=== PATIENT | male | born 1950 | race Caucasian/White ===

== ENCOUNTER 2017-10-29 15:12 | Observation (INO) | payer MEDICARE, OTHER ==
[~2017-10-29] VITALS: Ht 177.8 cm; Wt 91.6 kg
[~2017-10-29 15:12] MED LIST: ALUMAGSIMA PO; AMLO10 PO; ASPI81CH PO; Augmentin 875-1 EACH PO; BACL10 PO; CLIN150 PO; CLOP75 PO; CYCL10 PO; DIAZ5 PO; DIPATR PO; ENOX100I SC; ESCI20 PO; EZET10-20 PO; FAMO10 PO; FAMO20 PO; GARLIC; GEMF600 PO; HYDCHL25 PO; HYDMOR2 PO; HYDMOR4 PO; LORA1 PO; MECL25 PO; METPRE4DP PO; Metoprolol Tart25 MG PO; NITRSPRAY SL; OMEP20ER PO; ONDA4ODT MM; OXYACE5T PO; OXYACE7.5T PO; OXYC10TA19 PO; PERCOCET 10/325 MG PO; POTA10T PO; POTCHL10ER PO; PROM25 PO; PROP60 PO; SUCR1 PO; TIZA4 PO; VALS80 PO; WARF1 PO; WARF3 PO; WARF4 PO
[2017-10-29 15:38] LABS: BASOPHILS ABSOLUTE AUTO 0.03 K/mm3 (0.00-0.23); BASOPHILS PERCENT AUTO 0 % (0-2); EOSINOPHILS ABSOLUTE AUTO 0.12 K/mm3 (0.00-0.68); EOSINOPHILS PERCENT AUTO 1 % (0-6); Hematocrit 30.9 % (37.0-53.0); Hemoglobin 10.8 g/dL (13.5-17.5); IMMATURE GRAN ABSOLUTE AUTO 0.05 K/mm3 (0.00-0.10); IMMATURE GRAN PERCENT AUTO 1 % (0-1); LYMPHOCYTES ABSOLUTE AUTO 1.66 K/mm3 (0.84-5.20); LYMPHOCYTES PERCENT AUTO 17 % (21-46); MONOCYTES ABSOLUTE AUTO 0.74 K/mm3 (0.16-1.47); MONOCYTES PERCENT AUTO 8 % (4-13); Mean Corpuscular Volume 77 fL (80-100); Mean Platelet Volume 10.6 fL (9.1-12.4); NEUTROPHILS ABSOLUTE AUTO 7.29 K/mm3 (1.96-9.15); NEUTROPHILS PERCENT AUTO 74 % (41-73); Platelet Count 185 K/mm3 (150-400); RDW Coefficient Variation 15.8 % (11.7-14.2); RDW Standard Deviation 44.1 fL (35.1-46.3); White Blood Cell Count 9.89 K/mm3 (4.00-11.30)
[2017-10-29 15:52] LABS: Alanine Aminotransfer (ALT/SGP 20 U/L (12-78); Albumin, Blood 3.1 g/dL (3.4-5.0); Albumin/Globulin Ratio 0.9 (0.8-1.8); Alk Phos 114 U/L (50-136); Anion Gap 11 mmol/L (6-16); Aspartate Aminotrans (AST/SGOT 32 U/L (12-37); Bilirubin, Total 0.5 mg/dL (0.1-1.0); Blood Urea Nitrogen 9 mg/dL (8-24); Bun/Creatinine Ratio 7.4 (12.0-20.0); CO2, Blood 21 mmol/L (21-32); Calcium, Blood 8.2 mg/dL (8.5-10.1); Chloride, Blood 112 mmol/L (98-108); Creatinine, Blood 1.21 mg/dL (0.60-1.20); Ethanol (Alcohol), Blood, Med <3 mg/dL; Globulin, Blood 3.6 g/dL (2.2-4.0); Glomerular Filtration Rate >60 (60-); Glucose, Blood 94 mg/dL (70-99); Sodium, Blood 144 mmol/L (136-145); Total Protein, Blood 6.7 g/dL (6.4-8.2); Troponin I 0.105 ng/mL (0.000-0.040)
[2017-10-29 16:04] LABS: Prothrombin Time Results 70.8 Sec (9.7-11.5)
[2017-10-29 17:22] LABS: International Normalized Ratio 6.43
[2017-10-29] MEDS ORDERED: DOXE50 PO (17:39)
[2017-10-29] MEDS ORDERED: PANT40 PO (17:40)
[2017-10-29] MEDS ORDERED: ISOMON20 PO (17:41)
[2017-10-29] MEDS ORDERED: ATOR80 PO (17:42)
[2017-10-29] MEDS ORDERED: WARF2 PO (23:54)
[2017-10-29] MEDS ORDERED: HYDCHL12.5 PO (23:57)
[2017-10-30] MEDS ORDERED: OXYC15ER (00:03)
[2017-10-30 02:48] LABS: International Normalized Ratio 5.26; Prothrombin Time Results 57.6 Sec (9.7-11.5)
[2017-10-30 02:52] LABS: Anion Gap 6 mmol/L (6-16); Blood Urea Nitrogen 9 mg/dL (8-24); Bun/Creatinine Ratio 7.1 (12.0-20.0); CHOL/HDL RATIO 2.3; CO2, Blood 24 mmol/L (21-32); Calcium, Blood 7.9 mg/dL (8.5-10.1); Chloride, Blood 114 mmol/L (98-108); Cholesterol 70 mg/dL (50-200); Creatinine, Blood 1.27 mg/dL (0.60-1.20); Glomerular Filtration Rate 60 (60-); Glucose, Blood 98 mg/dL (70-99); HDL Cholesterol 31 mg/dL (>39); LDL/HDL RATIO 0.6; Low Density Lipoprotein Chol 19 mg/dL (0-110); Potassium, Blood 3.8 mmol/L (3.5-5.5); Sodium, Blood 144 mmol/L (136-145); Triglycerides 99 mg/dL (30-160); Very Low Density Lipoprot Chol 19 mg/dL (6-32)
[2017-10-30] MEDS ORDERED: ASPI81CH PO (12:17)
[2017-10-30] MEDS ORDERED: AMLO10 PO (12:17)
[2017-10-30] MEDS ORDERED: ISOMON20 (12:18)
[2017-10-30] MEDS ORDERED: HYDCHL25 PO (12:19)
== END 2017-10-30 13:12 | disposition home or self-care (01) ==
LOC: ER 15:12 → MEDS 15:13
PROVIDERS: Emergency Medicine; Family Medicine
DX: R55 Syncope and collapse (principal); E86.0 Dehydration; R79.89 Other specified abnormal findings of blood chemistry; R79.1 Abnormal coagulation profile; E78.5 Hyperlipidemia, unspecified; I10 Essential (primary) hypertension; I25.10 Atherosclerotic heart disease of native coronary artery without angina pectoris; H40.9 Unspecified glaucoma; E87.6 Hypokalemia; Z79.01 Long term (current) use of anticoagulants; Z95.2 Presence of prosthetic heart valve; Z95.1 Presence of aortocoronary bypass graft; Z88.5 Allergy status to narcotic agent; Z88.8 Allergy status to other drugs, medicaments and biological substances; Z79.899 Other long term (current) drug therapy; Z79.02 Long term (current) use of antithrombotics/antiplatelets; Z95.5 Presence of coronary angioplasty implant and graft; Z82.49 Family history of ischemic heart disease and other diseases of the circulatory system; Z79.52 Long term (current) use of systemic steroids
CPT/HCPCS: 36415; 70450; 71045; 80048; 80053; 80061; 82947; 83735; 84484; 85025; 85610; 93005; 93010; 93880; 96361; 96372; 96374; 96375; 99285; C9113; G0378; G0480; J3010; J3430; J7030

== ENCOUNTER 2018-05-01 12:05 | Day surgery (SDC) | payer MEDICARE, OTHER ==
[~2018-05-01] VITALS: Ht 177.8 cm; Wt 86.7 kg
[~2018-05-01 12:05] MED LIST changes: +ATOR80 PO; +DOCU100 PO; +DOXE50 PO; +HYDCHL12.5 PO; +ISOMON20; +ISOMON20 PO; +K-Dur20 MEQ PO; +LOSA50 PO; +METAMUCIL PO; +METO25 PO; +NITROSTAT SL; +OXYC15ER; +OXYC15ER PO; +PANT40 PO; +PROBIOTIC1 EAC1 PO; +RANO500T PO; +WARF2 PO
[2018-05-06] MEDS ORDERED: FOLI1 PO (13:35)
== END 2018-05-01 15:22 | disposition home or self-care (01) ==
LOC: ORSCSDS 12:05
PROVIDERS: Internal Medicine Gastroenterology
PROC: 0DBK8ZX Excision of Ascending Colon, Via Natural or Artificial Opening Endoscopic, Diagnostic (ICD-10-PCS; principal; 2018-05-01 13:45)
PROC: 0DBH8ZX Excision of Cecum, Via Natural or Artificial Opening Endoscopic, Diagnostic (ICD-10-PCS; principal; 2018-05-01 13:45)
PROC: 0DBL8ZX Excision of Transverse Colon, Via Natural or Artificial Opening Endoscopic, Diagnostic (ICD-10-PCS; principal; 2018-05-01 13:45)
PROC: 0DBM8ZX Excision of Descending Colon, Via Natural or Artificial Opening Endoscopic, Diagnostic (ICD-10-PCS; principal; 2018-05-01 13:45)
DX: Z12.11 Encounter for screening for malignant neoplasm of colon (principal); D12.0 Benign neoplasm of cecum; D12.2 Benign neoplasm of ascending colon; D12.3 Benign neoplasm of transverse colon; D12.4 Benign neoplasm of descending colon; K57.30 Diverticulosis of large intestine without perforation or abscess without bleeding; Z86.010 Personal history of colon polyps; K59.03 Drug induced constipation; R10.84 Generalized abdominal pain; I25.10 Atherosclerotic heart disease of native coronary artery without angina pectoris; Z95.1 Presence of aortocoronary bypass graft; G47.33 Obstructive sleep apnea (adult) (pediatric); Z87.891 Personal history of nicotine dependence; Z79.01 Long term (current) use of anticoagulants; Z79.891 Long term (current) use of opiate analgesic; Z79.899 Other long term (current) drug therapy
CPT/HCPCS: 88305

== ENCOUNTER 2018-06-10 10:34 | Day surgery (SDC) | payer MEDICARE, OTHER ==
[~2018-06-10 10:34] MED LIST changes: +FOLI1 PO
== END 2018-06-10 22:43 | disposition home or self-care (01) ==
LOC: US 10:34
DX: N63.21 Unspecified lump in the left breast, upper outer quadrant (principal)
CPT/HCPCS: 76942; 88173

== ENCOUNTER 2018-07-17 13:31 | Day surgery (SDC) | payer MEDICARE, OTHER ==
[~2018-07-17] VITALS: Ht 177.8 cm; Wt 86.4 kg
[~2018-07-17 13:31] MED LIST changes: +EZFE 200200 MG PO; +FOLI400 PO; +Ferrex 150 For1 EACH PO; +METO25; +Metamucil Smooth1 EA PO; +Nitrostat0.4 MG SL; +Ranexa1000 MG PO; +WARF4
[2018-07-17 14:38] LABS: International Normalized Ratio 1.8; Prothrombin Time Results 18.1 Sec (9.7-11.5)
--- NOTE | 2018-07-17 17:24 | NUR ---
07/17/18 1724 Narcisa Ward AT 1620 CHECKED DRSG. DRSG DRY/INTACT, REWRAPPED SCOTT WRAP SNUGLY ON CHEST. PT TOLERATED WELL.
== END 2018-07-17 17:10 | disposition home or self-care (01) ==
LOC: ORSCSDS 13:31
PROVIDERS: Surgery
PROC: 0HBU0ZX Excision of Left Breast, Open Approach, Diagnostic (ICD-10-PCS; principal; 2018-07-17 14:45)
DX: D24.2 Benign neoplasm of left breast (principal); I12.9 Hypertensive chronic kidney disease with stage 1 through stage 4 chronic kidney disease, or unspecified chronic kidney disease; N18.9 Chronic kidney disease, unspecified; I25.10 Atherosclerotic heart disease of native coronary artery without angina pectoris; J44.9 Chronic obstructive pulmonary disease, unspecified; G47.33 Obstructive sleep apnea (adult) (pediatric); Z87.891 Personal history of nicotine dependence; Z86.73 Personal history of transient ischemic attack (TIA), and cerebral infarction without residual deficits; I25.2 Old myocardial infarction; Z79.01 Long term (current) use of anticoagulants; Z79.899 Other long term (current) drug therapy
CPT/HCPCS: 85610; 88305; 88341; 88342; J2250; J3010; J7120

== ENCOUNTER 2018-12-04 11:38 | Day surgery (SDC) | payer MEDICARE, OTHER ==
[~2018-12-04] VITALS: Ht 177.8 cm; Wt 83.8 kg
== END 2018-12-04 14:40 | disposition home or self-care (01) ==
LOC: ORSCSDS 11:38
PROVIDERS: Internal Medicine Gastroenterology
PROC: 0DBL8ZX Excision of Transverse Colon, Via Natural or Artificial Opening Endoscopic, Diagnostic (ICD-10-PCS; principal; 2018-12-04 13:00)
PROC: 0DBM8ZX Excision of Descending Colon, Via Natural or Artificial Opening Endoscopic, Diagnostic (ICD-10-PCS; principal; 2018-12-04 13:00)
DX: Z86.010 Personal history of colon polyps (principal); D12.4 Benign neoplasm of descending colon; D12.3 Benign neoplasm of transverse colon; K57.30 Diverticulosis of large intestine without perforation or abscess without bleeding; D64.9 Anemia, unspecified; I25.10 Atherosclerotic heart disease of native coronary artery without angina pectoris; G47.33 Obstructive sleep apnea (adult) (pediatric); I10 Essential (primary) hypertension; E78.00 Pure hypercholesterolemia, unspecified; Z86.73 Personal history of transient ischemic attack (TIA), and cerebral infarction without residual deficits; Z87.891 Personal history of nicotine dependence; K21.9 Gastro-esophageal reflux disease without esophagitis; Z79.01 Long term (current) use of anticoagulants; Z79.899 Other long term (current) drug therapy
CPT/HCPCS: 88305; J2704; J7120

== ENCOUNTER → 2019-07-20 | Outpatient (CLI) | payer MEDICARE, OTHER ==
[~2019-07-20] MED LIST changes: +AMLO5 PO; +ENOX30I SC; +FURO40 PO
[2019-07-20 11:19] LABS: BASOPHILS ABSOLUTE AUTO 0.03 K/mm3 (0.00-0.23); BASOPHILS PERCENT AUTO 0 % (0-2); EOSINOPHILS ABSOLUTE AUTO 0.16 K/mm3 (0.00-0.68); EOSINOPHILS PERCENT AUTO 2 % (0-6); Hematocrit 36.5 % (37.0-53.0); Hemoglobin 12.5 g/dL (13.5-17.5); IMMATURE GRAN ABSOLUTE AUTO 0.06 K/mm3 (0.00-0.10); IMMATURE GRAN PERCENT AUTO 1 % (0-1); LYMPHOCYTES ABSOLUTE AUTO 2.37 K/mm3 (0.84-5.20); LYMPHOCYTES PERCENT AUTO 33 % (21-46); MONOCYTES ABSOLUTE AUTO 0.58 K/mm3 (0.16-1.47); MONOCYTES PERCENT AUTO 8 % (4-13); Mean Corpuscular HGB 28.6 pg (26.0-34.0); Mean Corpuscular HGB Conc 34.2 g/dL (31.5-36.5); Mean Corpuscular Volume 84 fL (80-100); Mean Platelet Volume 10.9 fL (9.1-12.4); NEUTROPHILS ABSOLUTE AUTO 3.91 K/mm3 (1.96-9.15); NEUTROPHILS PERCENT AUTO 55 % (41-73); Platelet Count 156 K/mm3 (150-400); RDW Coefficient Variation 13.5 % (11.7-14.2); RDW Standard Deviation 41.1 fL (35.1-46.3); Red Blood Cell Count 4.37 M/mm3 (4.30-5.90); White Blood Cell Count 7.11 K/mm3 (4.00-11.30)
[2019-07-20 11:24] LABS: Bun/Creatinine Ratio 10.6 (12.0-20.0); Calcium, Blood 8.9 mg/dL (8.5-10.1); Creatinine, Blood 1.51 mg/dL (0.60-1.20); Potassium, Blood 3.7 mmol/L (3.5-5.5)
[2019-07-20 11:25] LABS: International Normalized Ratio 1.08; Prothrombin Time Results 11.5 Sec (9.7-11.5)
== END ==
LOC: LAB 10:59 → LAB SHORT 10:59
PROVIDERS: Internal Medicine Cardiovascular Disease
DX: R07.9 Chest pain, unspecified (principal); R93.1 Abnormal findings on diagnostic imaging of heart and coronary circulation
CPT/HCPCS: 80048; 85025; 85610

== ENCOUNTER 2019-07-21 06:42 | Day surgery (SDC) | payer MEDICARE, OTHER ==
[~2019-07-21] VITALS: Ht 177.8 cm; Wt 90.9 kg
[~2019-07-21 06:42] MED LIST changes: -ENOX30I SC
[2019-07-21] MEDS ORDERED: ENOX30I SC (10:44)
--- NOTE | 2019-07-21 15:19 | NUR ---
PT AMBULATES TO RESTROOM MULTIPLE TIMES. PT REPORTS URINATING WITHOUT DIFFICULTIES. PT ALSO REPORTS HAVING A BM WITHOUT DIFFICULITIES. VS. NO BLEEDING, OOZING OR HEMATOMA NOTED AT R FEMORAL ACCESS SITE. WILL CONTINUR TO MONITOR.
--- NOTE | 2019-07-21 16:14 | NUR ---
DISCHARGE PT DRESSED SELF WITH ASSISSENCE FROM SPOUSE. PT DENIES ANY PAIN. VSS. R FEMORAL ACCESS SITE WITH BERE DRESSING. NO BLEEDING, OOZING OR HEMATOMA NOTED. PT REPORTS TENDERNESS BUT DENIES ANY PAIN TO AREA. PT AND SPOUSE STATE THEIR UNDERSTANDING OF SITE CARE INSTRUCTIONS AND DISCHARGE INSTRUCTIONS AND DENY ANY QUESTIONS OR CONCERNS. IV DCD WITH CATH INTACT. PT TO FRONT ENTERENCE VIA WHEELCHAIR AND ASSISTED INTO VEHICLE.
== END 2019-07-21 16:00 | disposition home or self-care (01) ==
LOC: MHTC 06:42
PROC: 4A023N7 Measurement of Cardiac Sampling and Pressure, Left Heart, Percutaneous Approach (ICD-10-PCS; principal; 2019-07-21)
PROC: B201YZZ Plain Radiography of Multiple Coronary Arteries using Other Contrast (ICD-10-PCS; principal; 2019-07-21)
PROC: B203YZZ Plain Radiography of Multiple Coronary Artery Bypass Grafts using Other Contrast (ICD-10-PCS; principal; 2019-07-21)
DX: I25.119 Atherosclerotic heart disease of native coronary artery with unspecified angina pectoris (principal); I25.729 Atherosclerosis of autologous artery coronary artery bypass graft(s) with unspecified angina pectoris; I25.82 Chronic total occlusion of coronary artery; I10 Essential (primary) hypertension; E78.5 Hyperlipidemia, unspecified; Z79.899 Other long term (current) drug therapy; Z87.891 Personal history of nicotine dependence; Z88.8 Allergy status to other drugs, medicaments and biological substances; Z88.5 Allergy status to narcotic agent; Z88.6 Allergy status to analgesic agent
CPT/HCPCS: 93455; 99152; 99153; C1769; C1894; J1644; J2704; J7030; J7120; Q9967

== ENCOUNTER 2022-01-12 09:35 | Inpatient (IN) | payer OTHER ==
[~2022-01-12] VITALS: Ht 175.3 cm; Wt 81.2 kg
[~2022-01-12 09:35] MED LIST changes: +ENOX30I SC
[2022-01-12 10:22] LABS: BASOPHILS ABSOLUTE AUTO 0.04 K/mm3 (0.00-0.23); BASOPHILS PERCENT AUTO 0 % (0-2); EOSINOPHILS ABSOLUTE AUTO 0.04 K/mm3 (0.00-0.68); EOSINOPHILS PERCENT AUTO 0 % (0-6); Hemoglobin 11.8 g/dL (13.5-17.5); IMMATURE GRAN ABSOLUTE AUTO 0.06 K/mm3 (0.00-0.10); IMMATURE GRAN PERCENT AUTO 1 % (0-1); LYMPHOCYTES ABSOLUTE AUTO 2.11 K/mm3 (0.84-5.20); LYMPHOCYTES PERCENT AUTO 18 % (21-46); MONOCYTES ABSOLUTE AUTO 0.93 K/mm3 (0.16-1.47); MONOCYTES PERCENT AUTO 8 % (4-13); Mean Corpuscular HGB 28.5 pg (26.0-34.0); Mean Corpuscular HGB Conc 34.7 g/dL (31.5-36.5); Mean Corpuscular Volume 82 fL (80-100); Mean Platelet Volume 10.1 fL (9.1-12.4); NEUTROPHILS PERCENT AUTO 74 % (41-73); Platelet Count 266 K/mm3 (150-400); RDW Coefficient Variation 14.3 % (11.7-14.2); RDW Standard Deviation 42.2 fL (35.1-46.3); Red Blood Cell Count 4.14 M/mm3 (4.30-5.90); White Blood Cell Count 12.08 K/mm3 (4.00-11.30)
[2022-01-12] MEDS ORDERED: [UNRECOGNIZED DRUG - CODE] PO (10:25)
[2022-01-12] MEDS ORDERED: SENOKOT8.6 MG PO (10:25)
[2022-01-12] MEDS ORDERED: TAMSULOSIN HCL0.4 M1 PO (10:26)
[2022-01-12] MEDS ORDERED: CYCL10 PO (10:29)
[2022-01-12] MEDS ORDERED: ALPR.5 PO (10:30)
[2022-01-12] MEDS ORDERED: ONDA4 PO (10:31)
[2022-01-12 10:39] LABS: Albumin, Blood 3.7 g/dL (3.4-5.0); Bilirubin, Total 0.9 mg/dL (0.1-1.0); Calcium, Blood 8.3 mg/dL (8.5-10.1); Creatinine, Blood 1.25 mg/dL (0.60-1.20); Globulin, Blood 3.6 g/dL (2.2-4.0); Total Protein, Blood 7.3 g/dL (6.4-8.2)
[2022-01-12 10:45] LABS: Prothrombin Time Results 52.4 Sec (9.7-11.5)
[2022-01-12 11:13] LABS: International Normalized Ratio 5.58
[2022-01-12 13:27] LABS: Source, Urine Clean Catch
[2022-01-12 13:33] LABS: Appearance, Urine Clear (Clear); Bilirubin, Urine Neg (Neg); Blood, Urine Neg (Neg); Color, Urine Yellow (P-Yellow); Glucose Qualitative, Urine Neg (Neg); Ketones, Urine 2+ (Neg); Leukocyte Esterase, Urine Neg (Neg); Nitrite, Urine Neg (Neg); Protein, Urine 1+ (Neg); Urobilinogen, Urine 1+ (Normal)
[2022-01-12 14:41] LABS: Hematocrit 29.5 % (37.0-53.0); Hemoglobin 10.5 g/dL (13.5-17.5)
--- NOTE | 2022-01-12 16:45 | NUR ---
PATIENT IS ALERT AND ORIENTED AND COOPERATIVE WITH CARE. DAUGHTER AT THE BEDSIDE. C/O LLQ ABDOMINAL PAIN UPON PALPATION. NO BM TODAY. PATIENT IS NPO EXCEPT WATER. C/O HIP PAIN, WILL MEDICATE PER EMAR. PATIENT STATES NO NAUSEA TODAY. WILL CONTINUE TO MONITOR
[2022-01-12 18:02] LABS: Hematocrit 30.8 % (37.0-53.0); Hemoglobin 10.6 g/dL (13.5-17.5)
--- NOTE | 2022-01-12 18:04 | NUR ---
DR. LEONG AT THE BEDSIDE. PATIENT'S S/O AT THE BEDSIDE. PLAN IS FOR UPPER ENDOSCOPY ONCE INR IS AT 2.5.
[2022-01-13 02:15] LABS: BASOPHILS ABSOLUTE AUTO 0.03 K/mm3 (0.00-0.23); BASOPHILS PERCENT AUTO 0 % (0-2); EOSINOPHILS ABSOLUTE AUTO 0.06 K/mm3 (0.00-0.68); EOSINOPHILS PERCENT AUTO 1 % (0-6); Hematocrit 25.5 % (37.0-53.0); Hemoglobin 8.8 g/dL (13.5-17.5); IMMATURE GRAN ABSOLUTE AUTO 0.03 K/mm3 (0.00-0.10); IMMATURE GRAN PERCENT AUTO 0 % (0-1); LYMPHOCYTES PERCENT AUTO 33 % (21-46); MONOCYTES ABSOLUTE AUTO 0.49 K/mm3 (0.16-1.47); MONOCYTES PERCENT AUTO 7 % (4-13); Mean Corpuscular HGB 28.6 pg (26.0-34.0); Mean Corpuscular HGB Conc 34.5 g/dL (31.5-36.5); Mean Corpuscular Volume 83 fL (80-100); Mean Platelet Volume 9.7 fL (9.1-12.4); NEUTROPHILS ABSOLUTE AUTO 4.32 K/mm3 (1.96-9.15); NEUTROPHILS PERCENT AUTO 59 % (41-73); Platelet Count 161 K/mm3 (150-400); RDW Coefficient Variation 14.4 % (11.7-14.2); RDW Standard Deviation 42.3 fL (35.1-46.3); Red Blood Cell Count 3.08 M/mm3 (4.30-5.90); White Blood Cell Count 7.33 K/mm3 (4.00-11.30)
[2022-01-13 02:38] LABS: Prothrombin Time Results 40.6 Sec (9.7-11.5)
[2022-01-13 02:40] LABS: International Normalized Ratio 4.25
[2022-01-13 02:42] LABS: Albumin/Globulin Ratio 1.1 (0.8-1.8); Bilirubin, Total 0.7 mg/dL (0.1-1.0); Bun/Creatinine Ratio 17.6 (12.0-20.0); Calcium, Blood 7.5 mg/dL (8.5-10.1); Creatinine, Blood 1.02 mg/dL (0.60-1.20); Globulin, Blood 2.7 g/dL (2.2-4.0); Potassium, Blood 3.8 mmol/L (3.5-5.5); Total Protein, Blood 5.7 g/dL (6.4-8.2)
--- NOTE | 2022-01-13 04:50 | NUR ---
SHIFT SUMMARY PT SLEPT OFF AND ON THIS EVENING. BECOMES UNCOMFORTABLE EASILY REMAINING IN BED RELATED TO CHRONIC PAIN. PT REPOSITIONS SELF IN BED. MEDICATED PER EMAR. PT DOES CONTINUE TO REPORT SOME MILD DIZZINESS INITIALLY WITH SITTING UP AT SIDE OF THE BED BUT IT RESOLVES QUICKLY AND PT WAITS FOR IT TO RESOLVE BEFORE STANDING. NO N/V OR BOWEL MOVEMENTS THIS EVENING. HOWEVER, HGB DID DROP FROM 10.5 TO 8.8. REDRAW AGAIN THIS AM. INR IMPROVED TO 4.25 FROM 5.58. PT HAS BEEN SNACKING ON CLEAR LIQUID DIET THROUGH THE NIGHT, TOLERATING WELL. NS TRANSFUSING AT 125/HR.
[2022-01-13 05:31] LABS: Hematocrit 25.1 % (37.0-53.0); Hemoglobin 8.6 g/dL (13.5-17.5)
[2022-01-13 09:40] LABS: Hemoglobin 8.6 g/dL (13.5-17.5)
[2022-01-13 13:45] LABS: Hematocrit 28.3 % (37.0-53.0); Hemoglobin 9.6 g/dL (13.5-17.5)
[2022-01-13 17:31] LABS: Hematocrit 24.6 % (37.0-53.0); Hemoglobin 8.5 g/dL (13.5-17.5)
--- NOTE | 2022-01-13 18:43 | NUR ---
SHIFT SUMMARY PT AXO, PLEASANT AND COOPERATIVE WITH CARE THOUGH IRRITABLE TOWARDS THE END OF SHIFT. PT STATES THAT HE'S "AMPING UP" R/T PAIN AND HUNGER. DR HERRERA CALLED AT 1800 WHO UPGRADED PT DIET TO [facility] SOFT DIET. VSS. PT EXTREMELY [place]ICK[place] IN[place] TRIBE AT BEGINNING OF SHIFT THEN HE STATED AT ABOUT 9 AM THAT HE PULLED OUT A SECTION OF COTTON BALL FROM HIS RIGHT EAR THAT HE FORGOT HE PUSHED "WAY DOWN" IN HIS EAR TO STOP SOME BLEEDING ABOUT 6 MONTHS AGO. PT STATED THE COTTON WAS SATURATED IN OLD BLOOD AND EAR WX BUT REPORTS HIS HEARING IS EXTREMELY IMPROVED. PT CONTINUES TO REPORT BLACK STOOL. SEE H&H LABS. MEDICATED PER EMAR FOR CHRONIC PAIN AND PAIN TO LLQ. BED IN LOW POSITION, CALL LIGHT WITHIN REACH. UP WITH SBA TO BATHROOM TO VOID.
[2022-01-13 21:42] LABS: Hematocrit 23.4 % (37.0-53.0); Hemoglobin 8.2 g/dL (13.5-17.5)
[2022-01-14 05:57] LABS: BASOPHILS ABSOLUTE AUTO 0.02 K/mm3 (0.00-0.23); BASOPHILS PERCENT AUTO 0 % (0-2); EOSINOPHILS ABSOLUTE AUTO 0.08 K/mm3 (0.00-0.68); EOSINOPHILS PERCENT AUTO 1 % (0-6); Hematocrit 23.8 % (37.0-53.0); IMMATURE GRAN ABSOLUTE AUTO 0.04 K/mm3 (0.00-0.10); IMMATURE GRAN PERCENT AUTO 1 % (0-1); LYMPHOCYTES PERCENT AUTO 33 % (21-46); MONOCYTES ABSOLUTE AUTO 0.43 K/mm3 (0.16-1.47); MONOCYTES PERCENT AUTO 8 % (4-13); Mean Corpuscular HGB 28.5 pg (26.0-34.0); Mean Corpuscular HGB Conc 33.6 g/dL (31.5-36.5); Mean Corpuscular Volume 85 fL (80-100); Mean Platelet Volume 9.8 fL (9.1-12.4); NEUTROPHILS ABSOLUTE AUTO 3.22 K/mm3 (1.96-9.15); NEUTROPHILS PERCENT AUTO 57 % (41-73); Platelet Count 159 K/mm3 (150-400); RDW Standard Deviation 45.3 fL (35.1-46.3); Red Blood Cell Count 2.81 M/mm3 (4.30-5.90); White Blood Cell Count 5.69 K/mm3 (4.00-11.30)
[2022-01-14 06:13] LABS: International Normalized Ratio 2.99; Prothrombin Time Results 29.2 Sec (9.7-11.5)
[2022-01-14 06:18] LABS: Albumin, Blood 2.9 g/dL (3.4-5.0); Albumin/Globulin Ratio 1.1 (0.8-1.8); Bilirubin, Total 0.5 mg/dL (0.1-1.0); Bun/Creatinine Ratio 14.9 (12.0-20.0); Calcium, Blood 8.2 mg/dL (8.5-10.1); Creatinine, Blood 1.01 mg/dL (0.60-1.20); Globulin, Blood 2.7 g/dL (2.2-4.0); Potassium, Blood 4.8 mmol/L (3.5-5.5); Total Protein, Blood 5.6 g/dL (6.4-8.2)
--- NOTE | 2022-01-14 06:37 | NUR ---
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 PT IS A DNR. AWAITING SCOPE BY DR LEONG WHEN INR IS BELOW 2.5. PT REFUSED A BLOOD DRAW LAST NIGHT DUE TO H&H CHECKS EVERY FOUR HOURS. SPOKE WITH PT ABOUT THE NEED FOR BLOOD DRAWS BUT HE WAS VISIBLY UPSET AND AGITATED. PT CALMED WITH DISCUSSION BUT STILL CONFUSED ABOUT LABS. PT IS STILL HAVING DARK AND TARRY STOOLS AND SOME LLQ ABDOMINAL PAIN. INR IS DOWN TO 2.99 THIS AM. HGB DROPPED TO 8.0. PT APPEARS MORE PALE AND REPORTS SOME INCREASED SOB AND WEAKNESS WHEN UP. PT TO FOLLOW UP FOR OUTPT COLONOSCOPY WITH DR SANCHEZ. MEDICATED WITH SCHEDULED OXY DUE TO WORSENING RIGHT HIP AND LEG PAIN.
--- NOTE | 2022-01-14 08:00 | NUR ---
PT PLEASANT COOP A/O TODAY. DENIES PAIN AT THIS TIME. STATES SOME DARK STOOLS LAST JASIEL. NO RAYMOND BLOOD NOTED. H/R REG. NO MURMUR NOTED. VALVE CLICK NOTED. LUNGS CLEAR, RESP EASY, UNLABORED. ON R/A. BT X4 LAST BM LAST NITE PER PT. VOIDS SBA TO BATHROOM. BED IN LOW POSITION, CALL LITE IN REACH, CALLS APPROP
[2022-01-14 10:45] LABS: Hematocrit 23.4 % (37.0-53.0); Hemoglobin 7.8 g/dL (13.5-17.5)
--- NOTE | 2022-01-14 18:09 | NUR ---
PT PLEASANT TODAY. DR LEONG MADE ORDERS TO HAVE HIM NPO AFTER DINNER, EXCEPT WATER AND MEDS. THEN FULL NPO AT 6AM. NOTE ON DOOR AND ON BOARD FOR REMINDER. PT HAD DARK STOOL TODAY. NO RAYMOND BLOOD NOTED. CONTINUES TO BE ON R/A . SBA TO BATHROOM. BED IN LOW POSITION, CALL LITE IN REACH CALLS APPROP
[2022-01-15 05:28] LABS: Hematocrit 22.8 % (37.0-53.0); Hemoglobin 7.5 g/dL (13.5-17.5)
[2022-01-15 05:43] LABS: International Normalized Ratio 1.48; Prothrombin Time Results 15.1 Sec (9.7-11.5)
[2022-01-15 06:36] LABS: Albumin, Blood 2.7 g/dL (3.4-5.0); Bilirubin, Total 0.7 mg/dL (0.1-1.0); Bun/Creatinine Ratio 14.5 (12.0-20.0); Calcium, Blood 7.9 mg/dL (8.5-10.1); Creatinine, Blood 1.24 mg/dL (0.60-1.20); Globulin, Blood 2.7 g/dL (2.2-4.0); Potassium, Blood 4.2 mmol/L (3.5-5.5); Total Protein, Blood 5.4 g/dL (6.4-8.2)
--- NOTE | 2022-01-15 07:39 | NUR ---
SHIUFT SUMMARY: PATIENT IS A&OX4, UP TO THE BATHROOM WITH SBAX1 AND FWW. CHRONIC BACK PAIN IS WELL CONTROLED WITH SCEDULED OXYCONTIN. IVF INFUSING PER MD ORDER. PATIENT HAS BEEN NPO SINCE 0600 WITH ONLY SIPS OF WATER SINCE AFTER DINNER LAST NIGHT.
--- NOTE | 2022-01-15 07:54 | NUR ---
History, Chart, Medications and Allergies reviewed before start of procedure. Patient confirms NPO status and agrees with scheduled surgery. Lungs clear T/O to Auscultation.
--- NOTE | 2022-01-15 08:18 | NUR ---
01/15/22 0818 Jennifer Walsh MONITOR INTACT WITH CONTINUOUS PULSE OXIMETRY AND INTERMITTENT BP. REFER TO DR SOSA'S ANESTHESIA RECORD.
--- NOTE | 2022-01-15 14:03 | NUR ---
0905 FINISHED ENDOSCOPY. TRISTIAN LOPES CALLED WITH REPORT. STATES SMALL INTESTINE BLEED. CLIPPED. PT TO COME HOME. DIET TO FOLLOW.
[2022-01-15] MEDS ORDERED: ENOX80I SC (14:47)
--- NOTE | 2022-01-15 16:46 | NUR ---
CALLED DR BOYD RE DISCHARGE. PT WILL NEED DOSE OF LOVENOX TO GO HOME. DR RICHMONDED DOSE FOR LIAM.
--- NOTE | 2022-01-15 17:29 | NUR ---
PT TO DISCHARGE THIS JASIEL. WE ARE UNABLE TO DISPENSE LOVENOX FOR NITE TIME DOSE FOR PT. HE WILL INSTEAD STAY HERE UNTIL JUST AFTER DOSE AND SPOUSE TO PARAMEDICAL AIDE AND TAKE HOME 9 PM. PHARMACY STATES THIS IS EARLIEST SAFE TO GIVE TODAY. WILL HAVE D/CHARGE DONE IN ADVANCE. PT STATES FEELS BETTER. CONTINUES TO AMBULATE SELF TO BATHROOM. BED IN LOW POSITION, CALL LITE IN REACH, CALLS APROP
--- NOTE | 2022-01-15 18:32 | NUR ---
PT DISCHARGE REVIEWED WITH PT. MEDS DISCUSSED. PT HAS ADMIN LOVENOX IN PAST. PT VERBALIZED UNDERSTANDING MEDS AND INST.. LEAVING IV IN UNTIL D/CHARGE AFTER LOVENOX GIVEN LIAM AT 9PM
--- NOTE | 2022-01-16 00:16 | NUR ---
Patient discharged via W/C with all belongings after evening meds given. IV discontinued without problems. Pt picked up by S.O. at ER entrance. Pt without any questions at this time. Reinforced some discharge teaching.
== END 2022-01-15 21:13 | disposition home or self-care (01) | DRG 378 ==
LOC: ER 09:35 → ERHOLD 12:36 → MEDS 12:36
PROVIDERS: Family Medicine; Internal Medicine Gastroenterology; Nurse Practitioner Acute Care; Physician Assistant; Student in an Organized Health Care Education/Training Program; ADMIT Internal Medicine
PROC: 0W3P8ZZ Control Bleeding in Gastrointestinal Tract, Via Natural or Artificial Opening Endoscopic (ICD-10-PCS; principal; 2022-01-15 08:00)
DX: K31.82 Dieulafoy lesion (hemorrhagic) of stomach and duodenum (principal); D62 Acute posthemorrhagic anemia; D68.59 Other primary thrombophilia; F11.20 Opioid dependence, uncomplicated; Z66 Do not resuscitate; I25.10 Atherosclerotic heart disease of native coronary artery without angina pectoris; I10 Essential (primary) hypertension; E78.5 Hyperlipidemia, unspecified; K59.09 Other constipation; G89.4 Chronic pain syndrome; D72.828 Other elevated white blood cell count; F41.9 Anxiety disorder, unspecified; Z95.4 Presence of other heart-valve replacement; Z95.1 Presence of aortocoronary bypass graft; Z90.49 Acquired absence of other specified parts of digestive tract; Z90.89 Acquired absence of other organs; Z98.1 Arthrodesis status; Z98.890 Other specified postprocedural states; Z87.891 Personal history of nicotine dependence; Z88.5 Allergy status to narcotic agent; Z88.6 Allergy status to analgesic agent; Z88.8 Allergy status to other drugs, medicaments and biological substances; Z79.01 Long term (current) use of anticoagulants; Z79.899 Other long term (current) drug therapy
CPT/HCPCS: 36415; 71045; 76770; 80053; 82272; 82330; 83735; 85014; 85018; 85025; 85610; 96374; 96375; 99285; A9270; C9113; J1610; J1650; J2704; J2765; J7030; J7120

== ENCOUNTER 2022-05-17 10:37 | Day surgery (SDC) | payer OTHER ==
[~2022-05-17 10:37] MED LIST changes: +ALPR.5 PO; +ENOX80I SC; -METO25; +ONDA4 PO; +SENOKOT8.6 MG PO; +TAMSULOSIN HCL0.4 M1 PO; +[UNRECOGNIZED DRUG - CODE] PO
== END 2022-05-17 11:52 | disposition home or self-care (01) ==
LOC: ATC 10:37
DX: D50.9 Iron deficiency anemia, unspecified (principal); I25.10 Atherosclerotic heart disease of native coronary artery without angina pectoris; Z79.01 Long term (current) use of anticoagulants; Z79.02 Long term (current) use of antithrombotics/antiplatelets; I10 Essential (primary) hypertension; E78.5 Hyperlipidemia, unspecified; G47.33 Obstructive sleep apnea (adult) (pediatric); J43.9 Emphysema, unspecified; Z95.1 Presence of aortocoronary bypass graft; Z88.8 Allergy status to other drugs, medicaments and biological substances; Z88.5 Allergy status to narcotic agent; N18.9 Chronic kidney disease, unspecified
CPT/HCPCS: J2916

== ENCOUNTER 2022-05-18 02:05 | Day surgery (SDC) | payer OTHER | END 2022-05-18 10:14 | disposition home or self-care (01) | LOC: ATC 02:05 | DX: D50.9 Iron deficiency anemia, unspecified (principal); I25.10 Atherosclerotic heart disease of native coronary artery without angina pectoris; E78.5 Hyperlipidemia, unspecified; G47.33 Obstructive sleep apnea (adult) (pediatric); J43.9 Emphysema, unspecified; I12.9 Hypertensive chronic kidney disease with stage 1 through stage 4 chronic kidney disease, or unspecified chronic kidney disease; N18.30 Chronic kidney disease, stage 3 unspecified; Z79.02 Long term (current) use of antithrombotics/antiplatelets; Z79.01 Long term (current) use of anticoagulants; Z95.2 Presence of prosthetic heart valve; Z95.1 Presence of aortocoronary bypass graft; Z95.5 Presence of coronary angioplasty implant and graft; Z88.5 Allergy status to narcotic agent; Z88.8 Allergy status to other drugs, medicaments and biological substances | CPT/HCPCS: J2916 ==

== ENCOUNTER 2022-05-19 00:16 | Day surgery (SDC) | payer OTHER ==
[2022-05-19 10:41] LABS: International Normalized Ratio 3.25; Prothrombin Time Results 31.6 Sec (9.7-11.5)
== END 2022-05-19 11:15 | disposition home or self-care (01) ==
LOC: ATC 00:16
PROVIDERS: Internal Medicine Cardiovascular Disease
DX: D50.9 Iron deficiency anemia, unspecified (principal); E78.5 Hyperlipidemia, unspecified; K59.09 Other constipation; F41.9 Anxiety disorder, unspecified; Z88.8 Allergy status to other drugs, medicaments and biological substances; Z88.5 Allergy status to narcotic agent; I25.10 Atherosclerotic heart disease of native coronary artery without angina pectoris; N18.30 Chronic kidney disease, stage 3 unspecified; I12.9 Hypertensive chronic kidney disease with stage 1 through stage 4 chronic kidney disease, or unspecified chronic kidney disease
CPT/HCPCS: 85610; J2916

== ENCOUNTER → 2025-03-11 | Outpatient (CLI) | payer OTHER ==
[2025-03-11 15:11] LABS: Ferritin, Serum 244.0 ng/mL (26-388); Total Iron Binding Capacity 275.0 ug/dL (250-450)
== END ==
LOC: LAB 13:09 → LAB SHORT 13:09
PROVIDERS: Internal Medicine Hematology & Oncology
DX: E61.1 Iron deficiency (principal)
CPT/HCPCS: 82728; 83540; 83550

== ENCOUNTER → 2025-04-28 | Outpatient (CLI) | payer OTHER ==
[2025-04-28 16:31] LABS: Ferritin, Serum 424.0 ng/mL (26-388); Total Iron Binding Capacity 257.0 ug/dL (250-450)
== END ==
LOC: LAB SHORT 14:49 → LAB 14:49
PROVIDERS: Internal Medicine Hematology & Oncology
DX: E61.1 Iron deficiency (principal)
CPT/HCPCS: 82728; 83540; 83550